=== PATIENT | male | born 1990 | race Caucasian/White ===

== ENCOUNTER 2018-02-25 03:27 | Emergency (ER) | payer BC, MEDICARE ==
[2018-02-25 03:41] VITALS: BP 120/82
--- NOTE | 2018-02-25 03:49 | ED Physician Documentation ---
PD HPI ABD PAIN - Stated complaint Stated Complaint: CONSTIPATED - Chief complaint Chief Complaint: Abd Pain - History obtained from History obtained from: Patient - History of Present Illness Timing - onset: How many days ago (4-5) Timing - details: Gradual onset Quality: Cramping Location: All over / everywhere Associated symptoms: Constipation. No: Fever, Nausea, Vomiting Recently seen: Not recently seen - Additional information Additional information: constipated x 4-5 days, c/o urge to defecate but unable to do so. c/o lower abdominal and rectal pain. Review of Systems Constitutional: denies: Fever, Chills, Sweats GI: reports: Abdominal Pain, Constipation. denies: Nausea, Vomiting, Diarrhea PD PAST MEDICAL HISTORY - Past Medical History Past Medical History: No - Past Surgical History Past Surgical History: No - Allergies Allergies/Adverse Reactions: Allergies Allergy/AdvReac Type Severity Reaction Status Date / Time codeine Allergy Anaphylaxis Verified 02/25/18 03:35 - Social History Does the pt smoke?: Yes Smoking Status: Current every day smoker Does the pt drink ETOH?: No Does the pt have substance abuse?: No Substance Use and Type: Marijuana - Immunizations Immunizations are current?: Yes - POLST Patient has POLST: No PD ED PE NORMAL - Vitals Vital signs reviewed: Yes - General General: Alert and oriented X 3, Well developed/nourished, Other (appears uncomfortable) - Abdomen Abdomen: Normal bowel sounds, Soft, Non tender, Non distended PD ED PE EXPANDED - Rectal Rectal: Normal Tone, Other (no stool in vault). No: Mass, Hemorrhoid, Fissure Results - Vitals Vitals: Vital Signs - 24 hr 02/25/18 03:31 Heart Rate 124 H Respiratory 18 Rate Blood Pressure 120/82 H O2 Saturation 96 Oxygen O2 Source Room air PD MEDICAL DECISION MAKING - ED course Complexity details: re-evaluated patient, considered differential, d/w patient ED course: no stool in vault to disempact. Given fleet's enema in ED and shortly thereafter, he had large BM with resolution of his symptoms. Departure - Departure Disposition: 01 Home, Self Care Clinical Impression: Constipation Condition: Good Instructions: ED Constipation
[2018-02-25] MEDS ORDERED: MINERAL OIL ENEMA 133 ML BOTTLE RC STA (04:02)
== END 2018-02-25 04:43 | disposition home or self-care (01) ==
LOC: ED 03:27
DX: K59.00 Constipation, unspecified (principal)
CPT/HCPCS: 99282; 99283; A9270

== ENCOUNTER 2018-07-18 13:21 | Emergency (ER) | payer SELFPAY ==
--- NOTE | 2018-07-18 14:18 | ED Physician Documentation ---
PD HPI HEADACHE - Stated complaint Stated Complaint: HEADACHE/ VOMITING - Chief complaint Chief Complaint: Neuro - History obtained from History obtained from: Patient - History of Present Illness Timing - onset: Yesterday Timing - duration: Hours (36) Timing - details: Gradual onset Pain level now: 7 Location: Right, Left Quality: Other (Sharp) Associated symptoms: Nausea, Vomiting (Last about approximately 1 hour ago). No: Fever, Weakness, Numbness, Syncope, Seizure Improved by: Rest, Dark room Worsened by: Moving Contributing factors: No: Anticoagulated Similar symptoms before: Has not had sx before Recently seen: Clinic (Yesterday saw his primary care provider who provided a prescription for antidepressant and Zanaflex) - Additional information Additional information: This is a 27-year-old presents with his mother complaints that he has not slept for 5 days despite taking NyQuil and Benadryl and he developed a "horrible headache" 36 hours ago. Mom says he has a lot of anxiety and she took him to the primary care provider yesterday because of the anxiety, depression and pain that he has been having in his jaw and his knees. They provided a prescription for an antidepressant and Zanaflex and that they wanted to send him to a specialist although she has no idea what type of specialist they had in mind. The patient's headache is in the alevism region bilaterally and sharp its worse with movement and laying down does make it feel better it is currently a 7 out o f 10. Yesterday he took ibuprofen 800 mg that did nothing to help alleviate the pain. He took a Zanaflex tablet this morning and also a Percocet tablet about 2 hours ago that has not helped at all in fact he thinks this her Percocet might have made it worse. He says his vision has been "weird" when he is looking at the TV playing his games they just do not look normal. Is been stuffy over the past couple days but denies any sore throat. Last emesis was an hour ago and he still feels nauseous. He has had pizza, green beans and chicken noodle soup today around 4 AM. Patient was diagnosed with ADHD and was on Ritalin until approximately 7 years ago when he self discontinued this medication and started smoking marijuana instead. He was using marijuana daily until 1 week ago. Denies use of other recreational drugs and is not does not consume alcohol. Denies any cardiac palpitations or dysuria. No trauma. Review of Systems Constitutional: denies: Fever, Chills Eyes: reports: Decreased vision Ears: denies: Ear pain Nose: denies: Rhinorrhea / runny nose Throat: denies: Sore throat Cardiac: denies: Chest pain / pressure, Palpitations Respiratory: denies: Dyspnea, Cough GI: reports: Nausea, Vomiting : denies: Dysuria Musculoskeletal: reports: Joint pain Neurologic: reports: Headache. denies: Generalized weakness, Head injury, LOC Psychiatric: reports: Depressed, Anxiety PD PAST MEDICAL HISTORY - Past Surgical History Past Surgical History: No - Present Medications Home Medications: Ambulatory Orders Medication Instructions Recorded Confirmed Citalopram [CeleXA] 10 mg PO ONCE 07/18/18 07/18/18 Neutra-Phos [K-Phos Neutral] 250 mg PO BIDWM #10 tablet 07/18/18 Zolpidem [Ambien] 5 mg PO HS #4 tablet 07/18/18 tiZANidine [Zanaflex] 2 mg PO Q8H 07/18/18 07/18/18 - Allergies Allergies/Adverse Reactions: Allergies Allergy/AdvReac Type Severity Reaction Status Date / Time codeine Allergy Anaphylaxis Verified 07/18/18 13:26 - Social History Does the pt smoke?: Yes Smoking Status: Current every day smoker Does the pt drink ETOH?: No Does the pt have substance abuse?: No - Immunizations Immunizations are current?: Yes - POLST Patient has POLST: No PD ED PE NORMAL - Vitals Vital signs reviewed: Yes - General General: Alert and oriented X 3, No acute distress, Well developed/nourished, Other (Patient is laying in a darkened room covered with his hoodie. Does not appear to be in any acute distress when he is aroused.) - HEENT HEENT: Atraumatic, Ears normal, Other (Both pupils are very dilated but reactive. Mucous membranes are dry.) - Neck Neck: Supple, no meningeal sign, No adenopathy - Cardiac Cardiac: RRR, No murmur - Respiratory Respiratory: No respiratory distress, Clear bilaterally - Abdomen Abdomen: Normal bowel sounds, Soft, Non tender - Derm Derm: Other (Patient is very pale.) - Neuro Neuro: Alert and oriented X 3, note teller 2-12 intact, No motor deficit, No sensory deficit, Normal speech, Other (Hyperreactive quadricep reflexes.) - Psych Psych: Normal mood, Normal affect Results - Vitals Vitals: Vital Signs - 24 hr 07/18/18 07/18/18 07/18/18 13:24 15:58 17:28 Temperature 36.1 C L Heart Rate 86 95 92 Respiratory 18 16 16 Rate Blood Pressure 127/83 H 131/75 H 125/82 H O2 Saturation 99 98 98 Oxygen O2 Source Room air - Labs Labs: Laboratory Tests 07/18/18 07/18/18 07/18/18 15:10 15:10 15:10 WBC 13.1 H RBC 4.79 Hgb 14.2 Hct 41.8 L MCV 87.3 MCH 29.6 MCHC 34.0 RDW 12.5 Plt Count 327 MPV 7.6 Neut # (Auto) 11.0 H Lymph # (Auto) 1.7 Stearns # (Auto) 0.4 Eos # (Auto) 0.0 Baso # (Auto) 0.1 Absolute Nucleated RBC 0.00 Nucleated RBC % 0.0 Sodium 139 Potassium 2.8 L Chloride 104 Carbon Dioxide 25 Anion Gap 10.0 BUN 12 Creatinine 0.8 Estimated GFR (MDRD) 118 Glucose 121 H Calcium 9.0 Phosphorus 1.2 L Magnesium 1.6 L TSH 0.49 Urine Color Urine Clarity Urine pH Ur Specific [place] Urine Protein Urine Glucose (UA) Urine Ketones Urine Occult Blood Urine Nitrite Urine Bilirubin Urine Urobilinogen Ur Leukocyte Esterase Ur Microscopic Review Urine Culture Comments Urine Opiates Screen Ur Oxycodone Screen Urine Methadone Screen Ur Propoxyphene Screen Ur Barbiturates Screen Ur Tricyclics Screen Ur Phencyclidine Scrn Ur Amphetamine Screen U Methamphetamines Scrn U Benzodiazepines Scrn Urine Cocaine Screen U Cannabinoids Screen Ethyl Alcohol < 5.0 07/18/18 16:04 WBC RBC Hgb Hct MCV MCH MCHC RDW Plt Count MPV Neut # (Auto) Lymph # (Auto) Stearns # (Auto) Eos # (Auto) Baso # (Auto) Absolute Nucleated RBC Nucleated RBC % Sodium Potassium Chloride Carbon Dioxide Anion Gap BUN Creatinine Estimated GFR (MDRD) Glucose Calcium Phosphorus Magnesium TSH Urine Color YELLOW Urine Clarity CLEAR Urine pH 7.5 Ur Specific [place] <=1.005 Urine Protein NEGATIVE Urine Glucose (UA) NEGATIVE Urine Ketones 40 H Urine Occult Blood NEGATIVE Urine Nitrite NEGATIVE Urine Bilirubin NEGATIVE Urine Urobilinogen 1 (NORMAL) Ur Leukocyte Esterase NEGATIVE Ur Microscopic Review NOT INDICATED Urine Culture Comments NOT INDICATED Urine Opiates Screen NEGATIVE Ur Oxycodone Screen POSITIVE H Urine Methadone Screen NEGATIVE Ur Propoxyphene Screen NEGATIVE Ur Barbiturates Screen NEGATIVE Ur Tricyclics Screen NEGATIVE Ur Phencyclidine Scrn NEGATIVE Ur Amphetamine Screen NEGATIVE U Methamphetamines Scrn NEGATIVE U Benzodiazepines Scrn NEGATIVE Urine Cocaine Screen NEGATIVE U Cannabinoids Screen POSITIVE H Ethyl Alcohol PD MEDICAL DECISION MAKING - ED course Complexity details: re-evaluated patient, d/w patient, d/w family ED course: Patient had a low Phos and K which were supplemented here in ED. He admits to not eating well. He received anti-emetics and IVFs here. Feels much better, LE is improved. Scripts for KPhos and Mom requesting something to help him sleep. Limited script for Ambien. Follow-up with primary provider for furhter management. Departure - Departure Disposition: Home, Self Care Clinical Impression: Headache Qualifiers: Headache type: unspecified Headache chronicity pattern: unspecified pattern Intractability: not intractable Qualified Code(s): R51 - Headache Insomnia Qualifiers: Insomnia type: unspecified Qualified Code(s): G47.00 - Insomnia, unspecified Condition: Good Instructions: ED Cephalgia Unspecified Follow-Up: SHREE CORDERO [Primary Care Provider] - Prescriptions: Neutra-Phos [K-Phos Neutral] 250 mg PO BIDWM #10 tablet Zolpidem [Ambien] 5 mg PO HS #4 tablet Comments: You can try the Ambien 1 tablet at bedtime to see if that will help with sleep. Make sure that you are keeping yourself hydrated and that you are eating properly. Take the K-Phos twice daily for the next 4 to 5 days. You should follow-up with your primary care provider for reevaluation next week. Discharge Date/Time: 07/18/18 17:29
[2018-07-18] MEDS ORDERED: KETOROLAC 30 MG/ML VIAL IVP STA (14:36)
[2018-07-18] MEDS ORDERED: SODIUM CHLORIDE 0.9% 1,000 ML IV ONE ×2 (14:36→15:56)
[2018-07-18] MEDS ORDERED: PROMETHAZINE INJ 25 MG in SODIUM CHLORIDE 0.9% 50 ML IV STA (14:37)
[2018-07-18 15:14] LABS: BASOPHILS # (AUTO) 0.1 10^3/uL (0.0-0.1); BASOPHILS % (AUTO) 0.8 %; EOSINOPHILS % (AUTO) 0.3 %; HGB - HEMOGLOBIN 14.2 g/dL (14.0-18.0); LYMPHOCYTES # (AUTO) 1.7 10^3/uL (1.5-3.5); LYMPHOCYTES % (AUTO) 12.7 %; MEAN CORPUSCULAR HEMOGLOBIN 29.6 pg (27.0-31.0); MEAN CORPUSCULAR VOLUME 87.3 fL (80.0-94.0); MEAN PLATELET VOLUME 7.6 fL (7.4-11.4); MONOCYTES # (AUTO) 0.4 10^3/uL (0.0-1.0); MONOCYTES % (AUTO) 2.7 %; NEUTROPHILS % (AUTO) 83.5 %; PLT - PLATELET COUNT 327 10^3/uL (130-450); RED BLOOD COUNT 4.79 10^6/uL (4.70-6.10); RED CELL DISTRIBUTION WIDTH 12.5 % (12.0-15.0); WHITE BLOOD COUNT 13.1 x10^3/uL (4.8-10.8)
[2018-07-18 15:27] LABS: BUN - BLOOD UREA NITROGEN 12 mg/dL (6-20); CARBON DIOXIDE - CO2 25 mmol/L (21-32); CHLORIDE 104 mmol/L (101-111); CREATININE 0.8 mg/dL (0.6-1.2); GFR - MDRD 118 (>89); GLUCOSE 121 mg/dL (70-100); MAGNESIUM 1.6 mg/dL (1.7-2.8); PHOSPHORUS 1.2 mg/dL (2.5-4.6); SODIUM 139 mmol/L (135-145)
[2018-07-18] MEDS ORDERED: NEUTRA-PHOS 250 MG TABLET PO STA (15:39)
[2018-07-18] MEDS ORDERED: POTASSIUM CHLORIDE 20 MEQ TABLET PO STA (15:40)
[2018-07-18 16:05] LABS: MUDS CUTOFF CONCENTRATIONS CUTOFF CONC BELOW:
[2018-07-18 16:08] LABS: BILIRUBIN,URINE NEGATIVE (NEGATIVE); CLARITY,URINE CLEAR (CLEAR); GLUCOSE, URINE (UA) NEGATIVE (NEGATIVE); KETONES,URINE (UA) 40 mg/dL (NEGATIVE); LEUKOCYTE ESTERASE, URINE NEGATIVE (NEGATIVE); NITRITE,URINE NEGATIVE (NEGATIVE); OCCULT BLOOD,URINE NEGATIVE (NEGATIVE); PH,URINE 7.5 PH (5.0-7.5); PROTEIN,URINE NEGATIVE (NEGATIVE); UROBILINOGEN,URINE 1 (NORMAL) E.U./dL (NORMAL)
[2018-07-18 16:25] LABS: AMPHETAMINE SCREEN,URINE NEGATIVE (NEGATIVE); BENZODIAZEPINES SCREEN, URINE NEGATIVE (NEGATIVE); COCAINE SCREEN URINE NEGATIVE (NEGATIVE); METHADONE SCREEN, URINE NEGATIVE (NEGATIVE); METHAMPHETAMINES SCREEN, URINE NEGATIVE (NEGATIVE); OPIATE SCREEN, URINE NEGATIVE (NEGATIVE); OXYCODONE SCREEN, URINE POSITIVE (NEGATIVE); PROPOXYPHENE SCREEN, URINE NEGATIVE (NEGATIVE); TRICYCLIC ANTIDEPRESSANT,URINE NEGATIVE (NEGATIVE)
[2018-07-18 17:29] VITALS: BP 125/82
== END 2018-07-18 17:29 | disposition home or self-care (01) ==
LOC: ED 13:21
DX: R51 Headache (principal); G47.00 Insomnia, unspecified; E83.39 Other disorders of phosphorus metabolism; E87.6 Hypokalemia; F41.9 Anxiety disorder, unspecified; F17.200 Nicotine dependence, unspecified, uncomplicated
CPT/HCPCS: 36415; 80048; 80320; 81003; 83735; 84100; 84443; 85025; 96361; 96365; 96375; 99284; A9270; J7040; 80306; 81001; 87086